=== PATIENT | female | born 2005 | race African-American/Black ===

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

== ENCOUNTER 2025-06-07 17:43 | Inpatient (IN) | payer OTHER, SELFPAY ==
[2025-06-07] VITALS (84 sets, daily range): BP systolic 114–150; BP diastolic 61–91; PULSE 65–134; TEMP 37.2; O2SAT 87–100; BMI 28.7
[2025-06-07 18:18] LABS: OBXCEM ROM Plus Positive (Negative)
[2025-06-07 18:28] LABS: Hematocrit 35.8 % (37.0-47.0); Hemoglobin 11.9 g/dL (12.0-15.0); Immature Granulocyte Percent A 1.4 % (0-0.5); Lymphocytes Absolute Auto 2.27 K/mm3 (0.9-3.2); Mean Corpuscular HGB Conc 33.2 g/dl (32-36); Mean Corpuscular Hemoglobin 30.3 pg (26-34); Mean Corpuscular Volume 91.1 fl (80-100); Nucleated Red Blood Cells Absolute Auto 0.020 K/mm3 (0.0-0.012); Nucleated Red Blood Cells Perc 0.2 % (0.0-0.2); Platelet Count Result 207 k/mm3 (150-375); Red Blood Count 3.93 M/mm3 (4.2-5.4); White Blood Count 8.0 K/mm3 (4.5-10.0)
[2025-06-07] MEDS: LACTATED RINGERS 1,000 ML 125 ML IV CONT ×2 (18:29→19:40)
--- NOTE | 2025-06-07 18:36 | WPDOBADMIT ---
Obstetrics - Admit Note Admission Note: record reviewed. No pertinent additions to the history and/or any subsequent changes in the physical findings that are not consistent with the expected course of the were found. Additions to the history and/or subsequent changes in the physical findings follow. Admit in labor sve /-2 SROM at home, anticipate vaginal delivery
--- NOTE | 2025-06-07 18:56 | P.PNAN_ITS ---
Anes - Eval Pre Procedure Procedure: labor epidural Date/Time: 06/07/25 18:56 Surgeon: emily Preop Diagnosis: pain during labor Pre Op Diagnosis: Leaking Patient Data Age: 20 Gender: F Height: Weight: Last Vital Signs Pulse 101 H 06/07/25 18:46 BP 141/87 H 06/07/25 18:46 Allergies Allergy/AdvReac Type Severity Reaction Status Date / Time No Known Allergies Allergy Verified 06/07/25 18:50 Home Medications ?Medication ?Instructions ?Recorded ?Confirmed ?Type vit no.95-ferrous 1 tablet PO DAILY 09/25/22 05/09/25 History fumarate 28 mg-folic acid 800 mcg tablet () Laboratory Tests 06/07/25 06/07/25 17:56 18:18 WBC 8.0 K/mm3 (4.5-10.0) RBC 3.93 L M/mm3 (4.2-5.4) Hgb 11.9 L g/dL (12.0-15.0) Hct 35.8 L % (37.0-47.0) MCV 91.1 fl (80-100) MCH 30.3 pg (26-34) MCHC 33.2 g/dl (32-36) RDW 16.3 H % (11.5-14.5) Plt Count 207 k/mm3 (150-375) MPV 12.3 H fl (7.4-10.4) Immature Gran % (Auto) 1.4 H % (0-0.5) Neut % (Auto) 63.4 % (45.5-73.1) Lymph % (Auto) 28.3 % (18.3-44.2) [place] % (Auto) 6.2 % (2.6-8.5) Eos % (Auto) 0.5 % (0-4.4) Baso % (Auto) 0.2 % (0.2-1.2) Lymph # (Auto) 2.27 K/mm3 (0.9-3.2) [place] # (Auto) 0.5 K/mm3 (0.1-0.6) Eos # (Auto) 0.0 K/mm3 (0-0.3) Baso # (Auto) 0.0 K/mm3 (0.0-0.1) Abs Immat Gran (auto) 0.11 H K/mm3 (0.00-0.031) Absolute Neuts (auto) 5.1 K/mm3 (1.3-6.7) Absolute Nucleated RBC 0.020 H K/mm3 (0.0-0.012) Nucleated RBC % 0.2 % (0.0-0.2) Membranes Rupture Rom plus positive (Negative) Patient hx anesthesia problems: none Family hx anesthesia problems: none Results Review: All pre-operative results and documents have been reviewed as part of the pre- operative evaluation. [facility] Past Medical History Medical History (Updated 06/07/25 @ 18:57 by Socorro Acosta CRNA) IUP (intrauterine ), incidental Social History Social History Smoking status: Never smoker Second hand tobacco smoke exposure: No Substance use: never Lack of Transportation: No Lack of Food: Never True Current Housing: I Have Housing Concerned About Future Housing: No Difficulty Paying Gas/Electric Bills: No Difficulty Paying for Meds: No Currently Unemployed: No Education: Grade School Difficulty w/ Childcare or Family Care: YES Spiritual care concerns: No Exam Day of Procedure 06/07/25 18:56
[2025-06-07 19:10] LABS: Syphilis IgG/IgM Antibody Non-Reactive (Nonreactive)
[2025-06-07] MEDS: OXYTOCIN 30 UNITS/NS 500 ML 30 UNITS/500 ML BAG 999 UNITS IV CONT (22:25)
--- NOTE | 2025-06-07 22:32 | PM.OBPRVD ---
OB - Vaginal Delivery Note Procedure Delivery date: 06/07/25 Induction method: None Delivery monitor: External FHT and External Uterine Route of delivery: Laceration Description: None Specimen: No Quantitative Blood Loss (ml): 100 Anesthesia type: Epidural Disposition: Floor Complications: No immediate complications Baby Date of : 06/07/25 Time of : 22:24 Gestational Age by Date: 38 gender: Female Weight (pounds): 7 Weight (ounces): 9 presentation: vertex position: Left Occiput Anterior Placenta delivery description: Spontaneous Cord Vessel Description: 3 Vessels score one minute: 9 score five minutes: 9
[2025-06-07] MEDS: OXYTOCIN 30 UNITS/NS 500 ML 30 UNITS/500 ML BAG 125 UNITS IV CONT (22:39)
[2025-06-08] VITALS (13 sets, daily range): BP systolic 123–140; BP diastolic 64–94; PULSE 70–87; RESP 14–18; TEMP 36.7–37.3; O2SAT 97–100
--- NOTE | 2025-06-08 00:51 | OBPPTRN ---
Patient transferred to post room #283 via wheelchair. Support person present. Oriented to unit, room, information board, rooming in, admission packet and security measures. Patient verbalizes understanding.
[2025-06-08] MEDS: IBUPROFEN 600 MG TABLET PO ×2 (01:45→12:26)
[2025-06-08 05:28] LABS: Hematocrit 30.7 % (37.0-47.0); Hemoglobin 10.0 g/dL (12.0-15.0)
--- NOTE | 2025-06-08 09:49 | P.PNOB_ITS ---
OB - PN: Subj Subjective Date/time seen: 06/08/25 09:49 Interval history: PPD#1 s/p Doing well, pain controlled Tolerating general diet Voiding without issue OB - PN: Obj Data Labs 06/08/25 05:11 Labs: Laboratory Results - last 24 hr 06/07/25 06/07/25 06/08/25 17:56 18:18 05:11 WBC 8.0 RBC 3.93 L Hgb 11.9 L 10.0 L Hct 35.8 L 30.7 L MCV 91.1 MCH 30.3 MCHC 33.2 RDW 16.3 H Plt Count 207 MPV 12.3 H Immature Gran % (Auto) 1.4 H Neut % (Auto) 63.4 Lymph % (Auto) 28.3 [place] % (Auto) 6.2 Eos % (Auto) 0.5 Baso % (Auto) 0.2 Lymph # (Auto) 2.27 [place] # (Auto) 0.5 Eos # (Auto) 0.0 Baso # (Auto) 0.0 Abs Immat Gran (auto) 0.11 H Absolute Neuts (auto) 5.1 Absolute Nucleated RBC 0.020 H Nucleated RBC % 0.2 Membranes Rupture Rom plus positive Syphilis IgG/IgM Ab Non-reactive Blood Type B Positive Antibody Screen Positive XANDER, IgG Interpret Not Performed XANDER, Poly Interpret Negative XANDER, Complement Interp Not Performed OB - PN A/P Assessment and Plan (1) (spontaneous vaginal delivery): Code(s): O80 - Encounter for full-term uncomplicated delivery Status: Acute Plan day: 1 Plan: routine care Time Spent With Patient Time: Total time spent is greater than 50% in coordination of care (as documented) at patient's floor/unit and/or counseling patient: Review of Systems 2 Review of Systems: All systems reviewed & are unremarkable except as noted in HPI and below Exam 2 Const: General: comfortable and no acute distress O rientation/consciousness: patient oriented x3 Resp: Effort & Inspection: normal respiratory effort
--- NOTE | 2025-06-09 00:53 | P.DS_ITS ---
DS: Admitting Diagnosis Discharge Date 06/09/25 Admitting Diagnosis labor OB - DS: Summary OB Procedures : None OB Procedures Intrapartum: Spontaneous Vag Delivery OB Procedures: : None Peripartum Data Laceration Description: None Time Spent with Patient Time attestation: Total time spent providing and/or coordinating discharge services: DS: Data Data Completed and Pending Labs on day of discharge: Labs from last 24 hours 06/08/25 05:11 Hgb 10.0 L Hct 30.7 L Discharge Plan Discharge Attending physician on discharge: Robin White Discharging Clinician: Robin White Patient Disposition: Home Activity: may shower, as tolerated and pelvic rest Diet: as tolerated Patient Instructions: Antibiotic Form Patient Language: [place] Stand Alone Forms: General Discharge Information Follow-up/Referrals: Robin White MD [Physician, MATERIAL LIAISON] - 4 Weeks Discharge Medications: New ibuprofen 600 mg Tablet 600 mg PO Q6H PRN (Reason: Cramping) Qty: 30 0RF Continued PNV no.95-ferrous fumarate-FA [] 28 mg iron- 800 mcg Tablet 1 tablet PO DAILY Patient Comments: ... Date of admission: 06/07/25 17:43 Primary Care Provider: UNKNOWN,DOCTOR Admitting Provider: Robin White Attending physician on admission: Robin White Condition: Stable
[2025-06-09] MEDS: DOCUSATE SODIUM 100 MG CAPSULE PO (07:05)
[2025-06-09 08:25] VITALS: BP 131/82; PULSE 72; RESP 18; TEMP 36.9; O2SAT 100
--- NOTE | 2025-06-09 10:25 | PM.OBPNVD ---
OB - PN: Subj Subjective Date/time seen: 06/09/25 10:25 Interval history: PPD#2 s/p Doing well, pain controlled Tolerating general diet Voiding without issue Ready for discharge home OB - PN: Obj Data Labs 06/08/25 05:11 Labs: Laboratory Results - last 24 hr 06/07/25 18:18 Antibody Identification Anti-M Antigen Identification M Antigen - NEGATIVE OB - PN A/P Assessment and Plan (1) (spontaneous vaginal delivery): Code(s): O80 - Encounter for full-term uncomplicated delivery Status: Acute Plan day: 2 Plan: routine care and discharge home Time Spent With Patient Time: Total time spent is greater than 50% in coordination of care (as documented) at patient's floor/unit and/or counseling patient:
== END 2025-06-09 13:06 | disposition home or self-care (01) | DRG 560 ==
LOC: ANHLDR 18:43 → ANHOB2 06-08 00:53
PROVIDERS: Advanced Practice Midwife; Admitting Provider Obstetrics & Gynecology; Visit Provider Obstetrics & Gynecology
DX: O80 Encounter for full-term uncomplicated delivery (principal); Z37.0 Single live birth; Z3A.38 38 weeks gestation of pregnancy
CPT/HCPCS: 36415; 84112; 85014; 85018; 85025; 86593; 86850; 86880; 86900; 86901; 86902; A9270; J2590; J2795; J7120